=== PATIENT | male | born 1965 | race Asian ===

== ENCOUNTER 2022-07-18 03:46 | Day surgery (SDC) | payer BC ==
[2022-07-17 16:35] VITALS: BMI 22.8
[2022-07-18] MEDS ORDERED: PROPOFOL 20 ML ONE (14:57)
[2022-07-18] MEDS ORDERED: ceFAZolin SODIUM 1 GM VIAL IVPB ONE (15:15)
[2022-07-18] MEDS ORDERED: ONDANSETRON 4 MG/2 ML VIAL ONE (15:51)
[2022-07-18] MEDS ORDERED: ePHEDrine SULFATE 50 MG/1 ML AMPULE ONE (15:51)
[2022-07-18] MEDS ORDERED: KETOROLAC TROMETHAMINE 30 MG/1 ML VIAL ONE (15:51)
[2022-07-18] MEDS ORDERED: DEXAMETHASONE SOD PHOSPHATE 4 MG/1 ML VIAL ONE (15:51)
[2022-07-18] MEDS ORDERED: oxyCODONE HCL 5 MG TABLET PO PRN (16:08)
[2022-07-18 17:59] VITALS: PULSE 82
[2022-07-18 18:53] VITALS: BP 132/83; RESP 18; TEMP 98.6
== END 2022-07-18 19:06 | disposition home or self-care (01) ==
LOC: JASU-SURG 03:46
PROVIDERS: ATTEND Urology
PROC: 0T778DZ Dilation of Left Ureter with Intraluminal Device, Via Natural or Artificial Opening Endoscopic (ICD-10-PCS; 2022-07-18)
PROC: 0TC18ZZ Extirpation of Matter from Left Kidney, Via Natural or Artificial Opening Endoscopic (ICD-10-PCS; principal; 2022-07-18 14:00)
DX: N13.2 Hydronephrosis with renal and ureteral calculous obstruction (principal)
CPT/HCPCS: 36415; 76000-TC-FY; 82360; 88300-TC; 94760; C1758; C1894; C2617

== ENCOUNTER 2022-07-19 03:44 | Emergency (ER) | payer BC ==
[2022-07-19 03:49] VITALS: BP 157/89; PULSE 86; RESP 17; TEMP 98.3; BMI 23.1
[2022-07-19] MEDS ORDERED: LIDOCAINE HCL 2% JELLY 10 ML CARTRIDGE UR ONE (04:20)
[2022-07-19] MEDS ORDERED: LIDOCAINE HCL 2% JELLY 10 ML CARTRIDGE ONE (04:22)
[2022-07-19] MEDS ORDERED: SODIUM CHLORIDE 1,000 ML IV STA (04:41)
[2022-07-19 05:55] LABS: BASO % 0.3 % (0-2.0); EOS % 0.4 % (0-4.5); HEMATOCRIT 41.3 % (35.4-49); HEMOGLOBIN 14.1 GM/dL (11.7-16.9); MCH 30.6 pg (25.7-33.7); MCHC 34.2 g/dl (32.0-35.9); MEAN CELL VOLUME 89.5 fl (80-96); MEAN PLT VOLUME 8.8 fl (7.5-11.1); MONO % 8.1 % (3.8-10.2); NEUT % 81.2 % (42.8-82.8); PLATELET COUNT 266 10^3/uL (134-434); RBC 4.61 M/mm3 (4.00-5.60); WHITE BLOOD COUNT 13.6 K/mm3 (4.0-10.0)
[2022-07-19 05:59] LABS: EPI CELLS 13 /uL (0-25.1); HYALINE CASTS 1 /uL (0-3.1); PH,URINE 5.5 (5.0-8.0); URINE APPEARANCE CLOUDY; URINE BACTERIA 1 /uL (0-1359); URINE BILIRUBIN NEGATIVE (NEGATIVE); URINE COLOR RED; URINE GLUCOSE (UA) 1+ (NEGATIVE); URINE KETONE NEGATIVE (NEGATIVE); URINE LEUK ESTERASE 1+ (NEGATIVE); URINE NITRITE NEGATIVE (NEGATIVE); URINE PROTEIN 2+ (NEGATIVE); URINE UROBILINOGEN 0.2 mg/dL (0.2-1.0); URINE WBC 76 /uL (0-25.8)
[2022-07-19 06:19] LABS: POTASSIUM 4.1 mmol/L (3.5-5.1)
[2022-07-19 06:20] LABS: CALCIUM 8.9 mg/dL (8.5-10.1)
[2022-07-19 06:21] LABS: BLOOD UREA NITROGEN 22.5 mg/dL (7-18)
[2022-07-19 06:24] LABS: CREATININE 1.3 mg/dL (0.55-1.3)
[2022-07-19 06:53] LABS: YEAST NONE SEEN (NEGATIVE)
== END 2022-07-19 06:34 | disposition home or self-care (01) ==
LOC: JER 03:44
PROC: 3E0337Z Introduction of Electrolytic and Water Balance Substance into Peripheral Vein, Percutaneous Approach (ICD-10-PCS; principal; 2022-07-19)
PROC: 0T9B70Z Drainage of Bladder with Drainage Device, Via Natural or Artificial Opening (ICD-10-PCS; 2022-07-19)
DX: R33.9 Retention of urine, unspecified (principal)
CPT/HCPCS: 36415; 80048; 81003; 85025; 87086; 99284-25

== ENCOUNTER 2022-07-25 22:28 | Inpatient (IN) | payer BC ==
[2022-07-25] MEDS ORDERED: SODIUM CHLORIDE 1,946 ML IV ONE (22:38)
[2022-07-25] MEDS ORDERED: ACETAMINOPHEN 1000 MG/100 ML BAG IVPB ONE (22:39)
[2022-07-25] MEDS ORDERED: ACETAMINOPHEN INJECTION 100 ML IVPB ONE (23:02)
[2022-07-25] MEDS ORDERED: IBUPROFEN 400 MG TABLET (FP) PO ONE (23:17)
[2022-07-25 23:37] LABS: BASO % 0.5 % (0-2.0); EOS % 1.1 % (0-4.5); HEMATOCRIT 43.9 % (35.4-49); HEMOGLOBIN 14.8 GM/dL (11.7-16.9); LYMPH % 4.6 % (8-40); MCH 30.1 pg (25.7-33.7); MCHC 33.8 g/dl (32.0-35.9); MEAN CELL VOLUME 89.2 fl (80-96); MEAN PLT VOLUME 7.3 fl (7.5-11.1); MONO % 1.9 % (3.8-10.2); NEUT % 91.9 % (42.8-82.8); PLATELET COUNT 395 10^3/uL (134-434); RBC 4.92 M/mm3 (4.00-5.60); WHITE BLOOD COUNT 17.3 K/mm3 (4.0-10.0)
[2022-07-25 23:40] LABS: VENOUS BASE EXCESS 2.9 mmol/L (-2-2); VENOUS O2 SATURATION 55.2 % (70-80); VENOUS PCO2 45.1 mmHg (38-52); VENOUS PH 7.414 (7.310-7.410)
[2022-07-25 23:55] LABS: INR 1.13 (0.83-1.09); PROTHROMBIN TIME (PATIENT) 13.1 SEC (9.7-13.0)
[2022-07-25 23:56] LABS: CHLORIDE 107 mmol/L (98-107); POTASSIUM 3.9 mmol/L (3.5-5.1); SODIUM 139 mmol/L (136-145)
[2022-07-25 23:58] LABS: ACTIVATED PTT 35.2 SECONDS (25.2-36.5); ALBUMIN 3.4 g/dl (3.4-5.0); ANION GAP 6 MMOL/L (8-16); BLOOD UREA NITROGEN 13.6 mg/dL (7-18); CALCIUM 9.2 mg/dL (8.5-10.1); CO2 26 mmol/L (21-32); GLUCOSE,RANDOM 164 mg/dL (74-106)
[2022-07-26 00:01] LABS: CREATININE 1.2 mg/dL (0.55-1.3); SGOT/AST 32 U/L (15-37); SGPT/ALT 96 U/L (13-61)
[2022-07-26 00:03] LABS: BILIRUBIN,TOTAL 1.3 mg/dL (0.2-1); TOT PROT 6.8 g/dl (6.4-8.2)
[2022-07-26 00:04] LABS: ALK PHOS 68 U/L (45-117)
[2022-07-26] MEDS ORDERED: PIPERACILLIN/TAZOB 3.375 GM 3.375 GM in DEXTROSE 5%-WATER - 50 ML IVPB ONE (00:22)
[2022-07-26 00:51] LABS: EPI CELLS 5 /uL (0-25.1); HYALINE CASTS 0 /uL (0-3.1); URINE APPEARANCE CLOUDY; URINE BILIRUBIN NEGATIVE (NEGATIVE); URINE COLOR YELLOW; URINE GLUCOSE (UA) NEGATIVE (NEGATIVE); URINE KETONE NEGATIVE (NEGATIVE); URINE LEUK ESTERASE 3+ (NEGATIVE); URINE NITRITE POSITIVE (NEGATIVE); URINE PROTEIN 2+ (NEGATIVE); URINE UROBILINOGEN 0.2 mg/dL (0.2-1.0); URINE WBC 2112 /uL (0-25.8)
[2022-07-26] MEDS ORDERED: PIPERACILLIN/TAZOB 3.375 GM 3.375 GM/50 ML BAG IVPB ONE (01:13)
[2022-07-26] MEDS ORDERED: ACETAMINOPHEN 1000 MG/100 ML BAG IVPB ONE (01:47)
[2022-07-26] MEDS ORDERED: ONDANSETRON 4 MG/2 ML VIAL IVPUSH ONE (02:14)
[2022-07-26] MEDS ORDERED: ONDANSETRON 4 MG/2 ML VIAL ONE (02:22)
[2022-07-26] MEDS ORDERED: VANCOMYCIN 1 GM in D5W (PRE-DOCKED) 1,000 MG/250 ML (RESTRICTED TO ID ONLY IVPB ONE (02:23)
[2022-07-26] MEDS ORDERED: IBUPROFEN 400 MG TABLET (FP) PO ONE (02:28)
[2022-07-26 02:55] LABS: ANISOCYTOSIS 1+; MACROCYTOSIS 0
[2022-07-26] MEDS ORDERED: VANCOMYCIN/WATER FOR INJ (PEG) 1,000 MG/200 ML BAG IVPB ONE (02:59)
[2022-07-26] MEDS ORDERED: morphine CARPU-JECT 4 MG/1 ML DISP.SYRIN IVPUSH PRN (03:40)
[2022-07-26] MEDS ORDERED: IBUPROFEN 800 MG/8 ML IJ IVPB PRN (03:44)
[2022-07-26] MEDS ORDERED: ACETAMINOPHEN 1000 MG/100 ML BAG IVPB PRN (03:50)
[2022-07-26 05:33] VITALS: BMI 22.1
[2022-07-26] MEDS ORDERED: VANCOMYCIN ORAL SOLUTION 125 MG/2.5 ML PO SCH ×2 (06:00→08:00)
[2022-07-26] MEDS: SODIUM CHLORIDE 1,000 ML IV SCH (06:11)
[2022-07-26] MEDS: INSULIN SLIDING SCALE (NOVOLOG) 1 VIAL SQ SCH ×4 (06:12→22:47)
[2022-07-26 09:23] LABS: URINE RBC 764.3 /uL (0-23.9)
[2022-07-26 10:00] LABS: HEMATOCRIT 40.3 % (35.4-49); HEMOGLOBIN 13.8 GM/dL (11.7-16.9); MCH 30.7 pg (25.7-33.7); MCHC 34.3 g/dl (32.0-35.9); MEAN CELL VOLUME 89.6 fl (80-96); MEAN PLT VOLUME 8.2 fl (7.5-11.1); PLATELET COUNT 331 10^3/uL (134-434); RDW 13.1 % (11.9-15.9); WHITE BLOOD COUNT 25.8 K/mm3 (4.0-10.0)
[2022-07-26 10:05] LABS: POTASSIUM 3.9 mmol/L (3.5-5.1)
[2022-07-26 10:10] LABS: CALCIUM 8.3 mg/dL (8.5-10.1)
[2022-07-26 10:11] LABS: BLOOD UREA NITROGEN 14.4 mg/dL (7-18); MAGNESIUM 1.5 mg/dL (1.8-2.4)
[2022-07-26 10:13] LABS: PHOSPHOROUS 3.4 mg/dL (2.5-4.9)
[2022-07-26 10:14] LABS: CREATININE 1.1 mg/dL (0.55-1.3)
[2022-07-26 10:15] LABS: BILIRUBIN,TOTAL 1.5 mg/dL (0.2-1)
[2022-07-26] MEDS: PIPERACILLIN/TAZOB 3.375 GM 3.375 GM in DEXTROSE 5%-WATER - 50 ML IVPB SCH ×4 (10:47→18:16)
[2022-07-26] MEDS: ENOXAPARIN NA (PORCINE) 40 MG/0.4 ML DISP.SYRIN SQ SCH (10:48)
[2022-07-26 11:53] LABS: ANISOCYTOSIS 0; HELMET CELLS 0; HOWELL-JOLLY BODIES 0; MACROCYTOSIS 0; OVALOCYTE 0; ROULEAU 0; SICKELED CELLS 0; TARGET CELLS 0; TEAR DROP CELLS 0; TOXIC GRANULATION 0
[2022-07-26] MEDS ORDERED: INSULIN (NOVOLOG) ASPART 100 UNITS/ML 10ML VIAL ONE (12:19)
[2022-07-26] MEDS ORDERED: PIPERACILLIN/TAZOB 3.375 GM 3.375 GM in DEXTROSE 5%-WATER - 50 ML IVPB SCH (18:00)
[2022-07-26] MEDS: DOCUSATE SODIUM 100 MG CAPSULE (FP) PO SCH (22:47)
[2022-07-26] MEDS: MAGNESIUM OXIDE 400 MG TABLET (FP) PO SCH (22:47)
[2022-07-27] MEDS: PIPERACILLIN/TAZOB 3.375 GM 3.375 GM in DEXTROSE 5%-WATER - 50 ML IVPB SCH ×3 (02:14→17:31)
[2022-07-27] MEDS ORDERED: INSULIN (NOVOLOG) ASPART 100 UNITS/ML 10ML VIAL ONE ×3 (07:45→22:04)
[2022-07-27] MEDS: SODIUM CHLORIDE 1,000 ML IV SCH ×2 (07:46→08:49)
[2022-07-27] MEDS: INSULIN SLIDING SCALE (NOVOLOG) 1 VIAL SQ SCH ×4 (07:46→22:23)
[2022-07-27 09:20] LABS: BASO % 0.2 % (0-2.0); EOS % 0.2 % (0-4.5); HEMATOCRIT 37.4 % (35.4-49); HEMOGLOBIN 12.7 GM/dL (11.7-16.9); LYMPH % 4.8 % (8-40); MCH 30.3 pg (25.7-33.7); MEAN PLT VOLUME 8.3 fl (7.5-11.1); MONO % 3.9 % (3.8-10.2); NEUT % 90.9 % (42.8-82.8); PLATELET COUNT 298 10^3/uL (134-434); RBC 4.21 M/mm3 (4.00-5.60)
[2022-07-27] MEDS: ENOXAPARIN NA (PORCINE) 40 MG/0.4 ML DISP.SYRIN SQ SCH (09:21)
[2022-07-27] MEDS: MAGNESIUM OXIDE 400 MG TABLET (FP) PO SCH ×2 (09:21→22:19)
[2022-07-27] MEDS: DOCUSATE SODIUM 100 MG CAPSULE (FP) PO SCH ×2 (09:21→22:18)
[2022-07-27 09:43] LABS: POTASSIUM 3.2 mmol/L (3.5-5.1)
[2022-07-27 09:53] LABS: ALBUMIN 2.6 g/dl (3.4-5.0)
[2022-07-27 09:55] LABS: CALCIUM 8.2 mg/dL (8.5-10.1); MAGNESIUM 1.6 mg/dL (1.8-2.4)
[2022-07-27 09:57] LABS: BILIRUBIN,TOTAL 1.3 mg/dL (0.2-1); BLOOD UREA NITROGEN 11.8 mg/dL (7-18)
[2022-07-27 09:58] LABS: TOT PROT 5.6 g/dl (6.4-8.2)
[2022-07-27 10:29] LABS: ANISOCYTOSIS 1+; MACROCYTOSIS 0
[2022-07-27] MEDS ORDERED: POTASSIUM CHLORIDE TABS 20 MEQ TABLET.ER (FP) PO ONE (12:04)
[2022-07-27] MEDS: ENALAPRIL MALEATE 10 MG TABLET PO SCH (13:09)
[2022-07-27] MEDS: TAMSULOSIN HCL 0.4 MG CAP PO SCH (13:09)
[2022-07-27] MEDS ORDERED: ACETAMINOPHEN 325 MG TABLET (FP) PO PRN (15:03)
[2022-07-28] MEDS: PIPERACILLIN/TAZOB 3.375 GM 3.375 GM in DEXTROSE 5%-WATER - 50 ML IVPB SCH ×3 (02:01→17:46)
[2022-07-28] MEDS: INSULIN SLIDING SCALE (NOVOLOG) 1 VIAL SQ SCH ×4 (06:16→23:11)
[2022-07-28] MEDS: SODIUM CHLORIDE 1,000 ML IV SCH ×2 (06:16→23:49)
[2022-07-28 08:52] LABS: HEMATOCRIT 39.9 % (35.4-49); HEMOGLOBIN 13.8 GM/dL (11.7-16.9); MCH 30.9 pg (25.7-33.7); MCHC 34.6 g/dl (32.0-35.9); MEAN CELL VOLUME 89.3 fl (80-96); MEAN PLT VOLUME 8.1 fl (7.5-11.1); PLATELET COUNT 319 10^3/uL (134-434); RBC 4.47 M/mm3 (4.00-5.60); RDW 13.1 % (11.9-15.9); WHITE BLOOD COUNT 20.2 K/mm3 (4.0-10.0)
[2022-07-28 09:16] LABS: POTASSIUM 3.7 mmol/L (3.5-5.1)
[2022-07-28 09:23] LABS: ALBUMIN 2.8 g/dl (3.4-5.0); BLOOD UREA NITROGEN 9.6 mg/dL (7-18)
[2022-07-28 09:24] LABS: ANISOCYTOSIS 0; HELMET CELLS 0; HOWELL-JOLLY BODIES 0; MACROCYTOSIS 0; OVALOCYTE 0; ROULEAU 0; SICKELED CELLS 0; TARGET CELLS 0; TEAR DROP CELLS 0; TOXIC GRANULATION 0
[2022-07-28 09:27] LABS: TOT PROT 6.4 g/dl (6.4-8.2)
[2022-07-28] MEDS: ENOXAPARIN NA (PORCINE) 40 MG/0.4 ML DISP.SYRIN SQ SCH (10:07)
[2022-07-28] MEDS: DOCUSATE SODIUM 100 MG CAPSULE (FP) PO SCH ×2 (10:08→22:56)
[2022-07-28] MEDS: ENALAPRIL MALEATE 10 MG TABLET PO SCH (10:08)
[2022-07-28] MEDS: TAMSULOSIN HCL 0.4 MG CAP PO SCH (10:08)
[2022-07-28] MEDS: MAGNESIUM OXIDE 400 MG TABLET (FP) PO SCH ×2 (10:09→22:56)
[2022-07-28] MEDS ORDERED: INSULIN (NOVOLOG) ASPART 100 UNITS/ML 10ML VIAL ONE ×2 (12:26→22:44)
[2022-07-29] MEDS: PIPERACILLIN/TAZOB 3.375 GM 3.375 GM in DEXTROSE 5%-WATER - 50 ML IVPB SCH ×3 (02:23→17:49)
[2022-07-29] MEDS: SODIUM CHLORIDE 1,000 ML IV SCH (08:00)
[2022-07-29] MEDS: INSULIN SLIDING SCALE (NOVOLOG) 1 VIAL SQ SCH ×3 (08:02→17:28)
[2022-07-29 08:44] LABS: EOS % 1.7 % (0-4.5); HEMATOCRIT 39.2 % (35.4-49); HEMOGLOBIN 13.4 GM/dL (11.7-16.9); LYMPH % 11.7 % (8-40); MCH 30.4 pg (25.7-33.7); MCHC 34.3 g/dl (32.0-35.9); MEAN CELL VOLUME 88.7 fl (80-96); MEAN PLT VOLUME 7.8 fl (7.5-11.1); MONO % 9.3 % (3.8-10.2); NEUT % 76.3 % (42.8-82.8); PLATELET COUNT 334 10^3/uL (134-434); RBC 4.42 M/mm3 (4.00-5.60); RDW 13.1 % (11.9-15.9); WHITE BLOOD COUNT 7.9 K/mm3 (4.0-10.0)
[2022-07-29 09:06] LABS: POTASSIUM 3.7 mmol/L (3.5-5.1)
[2022-07-29 09:14] LABS: CALCIUM 8.7 mg/dL (8.5-10.1)
[2022-07-29 09:15] LABS: ALBUMIN 2.8 g/dl (3.4-5.0); MAGNESIUM 1.9 mg/dL (1.8-2.4)
[2022-07-29 09:18] LABS: CREATININE 0.8 mg/dL (0.55-1.3)
[2022-07-29 09:20] LABS: BILIRUBIN,TOTAL 0.6 mg/dL (0.2-1); TOT PROT 6.2 g/dl (6.4-8.2)
[2022-07-29] MEDS: ENOXAPARIN NA (PORCINE) 40 MG/0.4 ML DISP.SYRIN SQ SCH (09:44)
[2022-07-29] MEDS: ENALAPRIL MALEATE 10 MG TABLET PO SCH (09:45)
[2022-07-29] MEDS: TAMSULOSIN HCL 0.4 MG CAP PO SCH (09:45)
[2022-07-29] MEDS: DOCUSATE SODIUM 100 MG CAPSULE (FP) PO SCH ×2 (09:45→21:28)
[2022-07-29] MEDS: MAGNESIUM OXIDE 400 MG TABLET (FP) PO SCH ×2 (09:46→21:28)
[2022-07-29] MEDS ORDERED: INSULIN (NOVOLOG) ASPART 100 UNITS/ML 10ML VIAL ONE (11:43)
[2022-07-30] MEDS: PIPERACILLIN/TAZOB 3.375 GM 3.375 GM in DEXTROSE 5%-WATER - 50 ML IVPB SCH ×2 (01:57→09:58)
[2022-07-30] MEDS: INSULIN SLIDING SCALE (NOVOLOG) 1 VIAL SQ SCH ×2 (06:24→17:38)
[2022-07-30] MEDS: SODIUM CHLORIDE 1,000 ML IV SCH ×2 (06:24→23:30)
[2022-07-30] MEDS: ENOXAPARIN NA (PORCINE) 40 MG/0.4 ML DISP.SYRIN SQ SCH (09:57)
[2022-07-30] MEDS: TAMSULOSIN HCL 0.4 MG CAP PO SCH (09:58)
[2022-07-30] MEDS: ENALAPRIL MALEATE 10 MG TABLET PO SCH (09:58)
[2022-07-30] MEDS: DOCUSATE SODIUM 100 MG CAPSULE (FP) PO SCH ×2 (09:58→21:59)
[2022-07-30] MEDS: MAGNESIUM OXIDE 400 MG TABLET (FP) PO SCH ×2 (09:59→21:59)
[2022-07-30 10:50] LABS: BASO % 0.7 % (0-2.0); EOS % 3.2 % (0-4.5); HEMATOCRIT 42.4 % (35.4-49); HEMOGLOBIN 14.6 GM/dL (11.7-16.9); LYMPH % 19.3 % (8-40); MCH 30.5 pg (25.7-33.7); MCHC 34.3 g/dl (32.0-35.9); MEAN CELL VOLUME 88.8 fl (80-96); MEAN PLT VOLUME 7.8 fl (7.5-11.1); MONO % 10.7 % (3.8-10.2); NEUT % 66.1 % (42.8-82.8); PLATELET COUNT 395 10^3/uL (134-434); RBC 4.77 M/mm3 (4.00-5.60); RDW 13.4 % (11.9-15.9); WHITE BLOOD COUNT 6.8 K/mm3 (4.0-10.0)
[2022-07-30 11:03] LABS: POTASSIUM 4.2 mmol/L (3.5-5.1)
[2022-07-30 11:06] LABS: CALCIUM 9.2 mg/dL (8.5-10.1)
[2022-07-30 11:07] LABS: ALBUMIN 2.9 g/dl (3.4-5.0); BLOOD UREA NITROGEN 11.9 mg/dL (7-18)
[2022-07-30 11:10] LABS: CREATININE 0.9 mg/dL (0.55-1.3)
[2022-07-30 11:12] LABS: BILIRUBIN,TOTAL 0.7 mg/dL (0.2-1); TOT PROT 6.6 g/dl (6.4-8.2)
[2022-07-30] MEDS: metroNIDAZOLE 250 MG TABLET PO SCH ×2 (15:14→21:59)
[2022-07-31] MEDS: SODIUM CHLORIDE 1,000 ML IV SCH (05:42)
[2022-07-31] MEDS: metroNIDAZOLE 250 MG TABLET PO SCH ×2 (05:42→14:00)
[2022-07-31] MEDS: INSULIN SLIDING SCALE (NOVOLOG) 1 VIAL SQ SCH (06:10)
[2022-07-31 08:58] LABS: BASO % 0.8 % (0-2.0); HEMATOCRIT 41.9 % (35.4-49); HEMOGLOBIN 14.4 GM/dL (11.7-16.9); LYMPH % 19.8 % (8-40); MCH 30.4 pg (25.7-33.7); MCHC 34.3 g/dl (32.0-35.9); MEAN CELL VOLUME 88.7 fl (80-96); MEAN PLT VOLUME 7.1 fl (7.5-11.1); MONO % 10.9 % (3.8-10.2); NEUT % 65.5 % (42.8-82.8); PLATELET COUNT 403 10^3/uL (134-434); RBC 4.73 M/mm3 (4.00-5.60); RDW 13.4 % (11.9-15.9); WHITE BLOOD COUNT 7.2 K/mm3 (4.0-10.0)
[2022-07-31 09:10] LABS: POTASSIUM 4.2 mmol/L (3.5-5.1)
[2022-07-31 09:13] LABS: CALCIUM 9.6 mg/dL (8.5-10.1)
[2022-07-31 09:14] LABS: ALBUMIN 2.9 g/dl (3.4-5.0); BLOOD UREA NITROGEN 13.2 mg/dL (7-18); MAGNESIUM 2.1 mg/dL (1.8-2.4)
[2022-07-31 09:17] LABS: CREATININE 0.9 mg/dL (0.55-1.3)
[2022-07-31 09:18] LABS: TOT PROT 6.4 g/dl (6.4-8.2)
[2022-07-31 09:19] LABS: BILIRUBIN,TOTAL 0.6 mg/dL (0.2-1)
[2022-07-31] MEDS: TAMSULOSIN HCL 0.4 MG CAP PO SCH (09:44)
[2022-07-31] MEDS: ENALAPRIL MALEATE 10 MG TABLET PO SCH (09:44)
[2022-07-31] MEDS: MAGNESIUM OXIDE 400 MG TABLET (FP) PO SCH (09:44)
[2022-07-31] MEDS: DOCUSATE SODIUM 100 MG CAPSULE (FP) PO SCH (09:44)
[2022-07-31] MEDS: ENOXAPARIN NA (PORCINE) 40 MG/0.4 ML DISP.SYRIN SQ SCH (09:45)
[2022-07-31 11:04] VITALS: RESP 18
[2022-07-31 15:09] VITALS: BP 118/76; PULSE 69; TEMP 97.6
== END 2022-07-31 16:47 | disposition home or self-care (01) | DRG 872 ==
LOC: JER 22:28 → JERBED 07-26 01:55 → J8W 07-26 04:55
PROVIDERS: ADMIT Internal Medicine; ATTEND Internal Medicine
DX: A41.89 Other specified sepsis (principal); N39.0 Urinary tract infection, site not specified; I10 Essential (primary) hypertension; R73.03 Prediabetes; K76.0 Fatty (change of) liver, not elsewhere classified; D72.829 Elevated white blood cell count, unspecified; R00.0 Tachycardia, unspecified; N40.0 Benign prostatic hyperplasia without lower urinary tract symptoms; B96.5 Pseudomonas (aeruginosa) (mallei) (pseudomallei) as the cause of diseases classified elsewhere
CPT/HCPCS: 0241U-QW; 36415; 71045-TC-FY; 74018-TC-FY; 74177-TC; 80053; 81003; 82550; 82553; 82803; 82962; 83036; 83605; 83735; 84100; 84484; 85025; 85610; 85730; 86850; 86900; 86901; 87040; 87086; 87186; 87324; 87449; 93005; 93010; 94010; 99285-25